=== PATIENT | male | born 1970 | race Two or more races ===

== ENCOUNTER 2018-03-19 05:34 | Emergency (ER) | payer OTHER ==
[~2018-03-19] VITALS: Ht 175.3 cm; Wt 108.9 kg
[2018-03-19 07:24] VITALS: BP 169/100
[2018-03-19] MEDS ORDERED: KETOROLAC TROMETH 60MG/2ML VIAL IM ONE (07:45)
== END 2018-03-19 08:12 | disposition home or self-care (01) ==
LOC: ER 05:36
DX: S52.201A Unspecified fracture of shaft of right ulna, initial encounter for closed fracture (principal); S20.211A Contusion of right front wall of thorax, initial encounter; E11.9 Type 2 diabetes mellitus without complications; I10 Essential (primary) hypertension; V43.52XA Car driver injured in collision with other type car in traffic accident, initial encounter; Y93.89 Activity, other specified; Y92.488 Other paved roadways as the place of occurrence of the external cause; Y99.8 Other external cause status
CPT/HCPCS: 29125; 71045; 73090; 96372; 99284; J1885

== ENCOUNTER 2018-05-28 14:46 | Emergency (ER) | payer OTHER ==
[~2018-05-28] VITALS: Ht 175.3 cm; Wt 108.9 kg
[2018-05-28] MEDS ORDERED: LIDOCAINE W/ EPINEPHRINE 2% INJ 20ML VIAL IJ ONE (18:15)
[2018-05-28] MEDS ORDERED: MORPHINE SULFATE 10 MG/ML INJ 1ML SDV IV ONE (18:15)
[2018-05-28] MEDS ORDERED: ONDANSETRON HCL 4 MG/2 ML VIAL IV ONE (18:15)
[2018-05-28] MEDS ORDERED: LIDOCAINE W/ EPINEPHRINE 1% 20ML VIAL ONE (19:36)
[2018-05-28 20:40] VITALS: BP 172/102
== END 2018-05-28 20:41 | disposition home or self-care (01) ==
LOC: ER 14:49
DX: S02.40EA Zygomatic fracture, right side, initial encounter for closed fracture (principal); S01.111A Laceration without foreign body of right eyelid and periocular area, initial encounter; E11.9 Type 2 diabetes mellitus without complications; I10 Essential (primary) hypertension; Y08.89XA Assault by other specified means, initial encounter; Y93.89 Activity, other specified; Y92.89 Other specified places as the place of occurrence of the external cause; Y99.8 Other external cause status
CPT/HCPCS: 12013; 70450; 70486; 73130; 96374; 96375; 99284; J2270; J2405